=== PATIENT | male | born 1940 | race Caucasian/White ===

== ENCOUNTER 2019-02-09 08:46 | Emergency (ER) | payer MEDICARE ==
[2019-02-09 09:50] LABS: BASOPHILS % (AUTO) 1.4 % (0.0-5.0); HEMATOCRIT 40.1 % (42-54); LYMPHOCYTES % (AUTO) 12.2 % (21.0-51.0); MEAN CORPUSCULAR HEMOGLOBIN 27.7 pg (27.0-33.0); MEAN CORPUSCULAR HGB CONC 32.2 g/dL (32.0-36.0); MEAN CORPUSCULAR VOLUME 86.1 fL (79-99); MONOCYTES % (AUTO) 5.8 % (3.0-13.0); NEUTROPHILS % (AUTO) 77.6 % (40.0-77.0); PLATELET COUNT (AUTO) 333 K/uL (130-400); RED BLOOD CELL COUNT(AUTO) 4.65 MIL/uL (4.50-6.20); RED CELL DISTRIBUTION WIDTH 15.5 % (11.0-15.5); WHITE BLOOD COUNT (AUTO) 11.1 K/uL (4.8-10.8)
[2019-02-09 10:01] LABS: PARTIAL THROMBOPLASTIN TIME 27.6 SEC (26.3-35.5); PROTHROMBIN TIME 10.5 SEC (9.6-11.6)
[2019-02-09 10:04] LABS: CREATININE 0.6 mg/dL (0.5-1.5); POTASSIUM 3.5 mmol/L (3.5-5.1)
[2019-02-09 10:10] LABS: ALBUMIN 3.2 g/dL (3.5-5.0); BILIRUBIN,TOTAL 0.5 mg/dL (0.2-1.0); TOTAL PROTEIN, SERUM 8.2 g/dL (6.0-8.3)
[2019-02-09 10:36] LABS: B-TYPE NATRIURETIC PEPTIDE 22 pg/mL (0-100)
--- NOTE | 2019-02-09 11:15 | NUR ---
U/S GD LEFT THORACENTESIS PROCEDURE PERFORMED BY DR ORDONEZ. PUNCTURE SITE LEFT LATERAL RIB CAGE/BACK AND PATIENT TOLERATED PROCEDURE WELL. TOTAL REMOVED 1.5 LITERS OF MIKY CLOUDY FLUID. END OF PROCEDURE AT 1125. CATHETER REMOVED AND DRESSING APPLIED. SPECIMEN SENT TO LAB. NO BLEEDING NOTED. POST CHEST X-RAY TAKEN AND READ BY DR ORDONEZ. NO PNEUMOTHORAX SEEN. REPORT GIVEN TO ANEL PATEL IN ER. AND PATIENT TRANSPORTED TO ED VIA STRETCHER, STABLE, AAO X3 WITH NO C/O PAIN.
[2019-02-09 13:11] LABS: APPEARANCE BODY FLUID SLIGHTLY CLOUDY (CLEAR); BODY FLUID WBC 1031 /cu. mm.; COLOR,BODY FLUID AMBER (LT YELLOW); SPECIMENTYPE,BODY FLUID PLEURAL; TOTAL VOLUME,BODY FLUID 1500 mL
[2019-02-09 13:12] LABS: BODY FLUID RBC 4450 /cu. mm.
[2019-02-09 13:15] LABS: BF EOSINOPHIL 7 %; BF LYMPHOCYTE 82 %; BF MESOTHELIAL 6 %; BF MONOCYTE 3 %
[2019-02-09] MEDS ORDERED: LIDOCAINE HCL 1% 20 ML VIAL ONE (16:34)
[2019-02-12] MEDS ORDERED: FURO40TA5 PO (17:37)
[2019-02-12] MEDS ORDERED: CHOL400T33 PO (17:37)
[2019-02-12] MEDS ORDERED: LISI40TA4 PO (17:37)
[2019-02-12] MEDS ORDERED: METF-446 PO (17:37)
[2019-02-12] MEDS ORDERED: REGULAR INSULIN SQ (17:37)
[2019-02-12] MEDS ORDERED: LACT10SO9 PO (17:37)
[2019-02-12] MEDS ORDERED: DSSL PO (17:37)
[2019-02-12] MEDS ORDERED: CYAN500T46 PO (17:37)
[2019-02-12] MEDS ORDERED: GABA-531 PO (17:37)
[2019-02-12] MEDS ORDERED: METO25TA6 PO (17:37)
[2019-02-12] MEDS ORDERED: OSCD250 PO (17:37)
[2019-02-12] MEDS ORDERED: SOLI5 PO (17:37)
[2019-02-12] MEDS ORDERED: ZINC56.7 TP (17:37)
[2019-02-12] MEDS ORDERED: ASPI-555 PO (17:37)
[2019-02-12] MEDS ORDERED: LATA7.5D OU (17:37)
[2019-02-12] MEDS ORDERED: FERR-63 PO (17:37)
[2019-02-12] MEDS ORDERED: GLIP5TAB11 PO (17:37)
[2019-02-12] MEDS ORDERED: ACET325T51 PO (17:37)
== END 2019-02-09 14:53 | disposition home or self-care (01) ==
LOC: EDH 08:46
DX: J90 Pleural effusion, not elsewhere classified (principal); E78.5 Hyperlipidemia, unspecified; E11.9 Type 2 diabetes mellitus without complications; I10 Essential (primary) hypertension; Z88.8 Allergy status to other drugs, medicaments and biological substances; Z86.718 Personal history of other venous thrombosis and embolism; Z98.890 Other specified postprocedural states; Z93.3 Colostomy status
CPT/HCPCS: 32555; 36415; 71045; 71046; 80053; 82945; 83615; 83880; 83986; 84157; 85025; 85610; 85730; 87071; 87101; 87205; 87206; 89051

== ENCOUNTER 2019-02-19 18:38 | Inpatient (IN) | payer MEDICARE | END 2019-02-28 19:30 | LOC: EDH 18:38 → 3BH 02-25 12:09 → 4AH 02-20 12:47 → EDHIP 20:20 → 4AH 02-20 16:35 | DX: J90 Pleural effusion, not elsewhere classified (principal); J18.9 Pneumonia, unspecified organism; J96.01 Acute respiratory failure with hypoxia; J98.11 Atelectasis; N31.9 Neuromuscular dysfunction of bladder, unspecified; R91.1 Solitary pulmonary nodule ==

== ENCOUNTER → 2019-03-30 | Outpatient (CLI) | payer MEDICARE ==
[~2019-03-30] MED LIST: ACET325T51 PO; ASPI-555 PO; CHOL400T33 PO; CYAN500T46 PO; DSSL PO; FERR-63 PO; FURO40TA5 PO; GABA-531 PO; GLIP5TAB11 PO; LACT10SO9 PO; LATA7.5D OU; LISI40TA4 PO; METF-446 PO; METO25TA6 PO; OSCD250 PO; REGULAR INSULIN SQ; SOLI5 PO; ZINC56.7 TP
== END | disposition home or self-care (01) ==
LOC: RAH 08:51
PROVIDERS: ATTEND Urology
DX: K57.90 Diverticulosis of intestine, part unspecified, without perforation or abscess without bleeding (principal); J90 Pleural effusion, not elsewhere classified; J98.11 Atelectasis; I70.90 Unspecified atherosclerosis; K44.9 Diaphragmatic hernia without obstruction or gangrene; M47.815 Spondylosis without myelopathy or radiculopathy, thoracolumbar region
CPT/HCPCS: 74176

== ENCOUNTER 2020-05-10 19:58 | Inpatient (IN) | payer MEDICARE ==
[~2020-05-10] VITALS: Ht 175.3 cm; Wt 72.4 kg
[~2020-05-10 19:58] MED LIST changes: -ASPI-555 PO; +ASPI-556 PO
[2020-05-10 20:40] LABS: BASOPHILS % (AUTO) 1.1 % (0.0-5.0); EOSINOPHILS % (AUTO) 6.4 % (0.0-8.0); HEMATOCRIT 31.9 % (42-54); LYMPHOCYTES % (AUTO) 11.4 % (21.0-51.0); MEAN CORPUSCULAR VOLUME 87.2 fL (79-99); MONOCYTES % (AUTO) 6.8 % (3.0-13.0); NEUTROPHILS % (AUTO) 73.5 % (40.0-77.0); PLATELET COUNT (AUTO) 362 K/uL (130-400); RED BLOOD CELL COUNT(AUTO) 3.66 MIL/uL (4.50-6.20); RED CELL DISTRIBUTION WIDTH 18.2 % (11.0-15.5)
[2020-05-10 20:40] LABS: APPEARANCE,URINE Turbid (CLEAR); BILIRUBIN,URINE Negative (NEGATIVE); COLOR,URINE Yellow (YELLOW); GLUCOSE, URINE (UA) Negative (NEGATIVE); KETONES,URINE Negative (NEGATIVE); LEUKOCYTE ESTERASE ,URINE Large (NEGATIVE); NITRATE,URINE Positive (NEGATIVE); OCCULT BLOOD,URINE Moderate (NEGATIVE); PH,URINE 6.5 (5.0-8.0); PROTEIN,URINE 300 mg/dL (NEGATIVE)
[2020-05-10 20:49] LABS: CREATININE 0.5 mg/dL (0.5-1.5); POTASSIUM 4.1 mmol/L (3.5-5.1)
[2020-05-10 20:54] LABS: ALBUMIN 2.6 g/dL (3.5-5.0); BILIRUBIN,TOTAL 0.2 mg/dL (0.2-1.0); TOTAL PROTEIN, SERUM 6.8 g/dL (6.0-8.3)
[2020-05-10 20:58] LABS: BACTERIA,URINE Moderate /HPF (None Seen); RBC,URINE None Seen /HPF (0-1); SQUAMOUS EPITHELIAL CELL,UR None Seen /HPF (0-2); WBC,URINE >100 /HPF (0-1)
[2020-05-10] MEDS ORDERED: CEFTRIAXONE SODIUM 1 GM ONE (21:10)
[2020-05-10] MEDS ORDERED: SODIUM CHLORIDE 0.9% 1000ML 1,000 ML IV ONE (21:11)
[2020-05-10] MEDS ORDERED: ZOSYN 3.375GM+NS 50ML 50 ML IV ONE (22:50)
[2020-05-10 23:45] VITALS: BP 102/56
[2020-05-11] MEDS ORDERED: ACETAMINOPHEN 325 MG TAB PO PRN ×2 (01:30)
[2020-05-11] MEDS ORDERED: LACTULOSE 20 GM/30 ML UDCUP PO PRN (01:30)
[2020-05-11] MEDS ORDERED: NITROGLYCERIN 0.4 MG SL TAB SL PRN (01:30)
[2020-05-11] MEDS ORDERED: DiphenhydrAMINE HCL 50 MG/ML VIAL IVP PRN (01:30)
[2020-05-11] MEDS ORDERED: GUAIFENESIN-DM 200/20 MG 10 ML PO PRN (01:30)
[2020-05-11] MEDS ORDERED: DEXTROSE 50%-WATER 50 ML DISP.SYRIN IV PRN (01:30)
[2020-05-11] MEDS ORDERED: DIPHENHYDRAMINE HCL 25 MG CAPSULE PO PRN (01:30)
[2020-05-11] MEDS ORDERED: LIDOCAINE HCL-MPF 1% 2ML VIAL IJ PRN (01:30)
[2020-05-11] MEDS ORDERED: ONDANSETRON HCL 4 MG/2 ML VIAL IVP PRN (01:30)
[2020-05-11] MEDS ORDERED: POTASSIUM CHLORIDE 10% ELIXIR 20 MEQ/15 ML UDCUP PO PRN (01:30)
[2020-05-11] MEDS ORDERED: MAG HYDROX/AL HYDROX/SIMETH ES 30 ML SUSP UDCUP PO PRN (01:30)
[2020-05-11] MEDS ORDERED: GLUCAGON 1MG KIT 1 MG ML IM PRN (01:30)
[2020-05-11] MEDS ORDERED: GUAIFENESIN SUGAR-FREE 100 MG/5 ML UDCUP PO PRN (01:30)
[2020-05-11] MEDS ORDERED: ZOLPIDEM TARTRATE 5 MG TAB PO PRN (01:30)
[2020-05-11] MEDS ORDERED: CLONIDINE HCL 0.1 MG TABLET PO PRN (01:30)
[2020-05-11] MEDS ORDERED: ZINC50TA15 PO (01:50)
[2020-05-11] MEDS ORDERED: ASCO250T70 PO (01:50)
[2020-05-11] MEDS ORDERED: SULF1TAB42 PO (01:50)
[2020-05-11] MEDS ORDERED: NYST10PO MC (01:50)
[2020-05-11] MEDS ORDERED: INSU100I26 SQ (01:50)
[2020-05-11] MEDS ORDERED: FLUC200T8 PO (01:50)
[2020-05-11] MEDS ORDERED: COLL30OI TP (01:50)
[2020-05-11] MEDS ORDERED: MUPI22OI2 TP (01:50)
[2020-05-11] MEDS: SODIUM CHLORIDE 0.9% 1000ML 1,000 ML IV SCH ×2 (02:07→14:06)
[2020-05-11] MEDS: LEVOFLOXACIN 500 MG/D5W 100 ML 100 ML IV SCH (02:07)
[2020-05-11 03:00] VITALS: BP 99/49
[2020-05-11] MEDS: INSULIN R PO SS1 SQ SCH ×4 (05:32→21:00)
[2020-05-11] MEDS: ZOSYN 3.375GM+NS 50ML 50 ML IV SCH ×3 (05:55→21:14)
[2020-05-11 08:10] VITALS: BP 99/50
[2020-05-11] MEDS: NYSTATIN 15 GM POWDER TP SCH ×3 (10:14→21:13)
[2020-05-11 12:00] VITALS: BP 111/56
--- NOTE | 2020-05-11 12:01 | NUR ---
RD NOTIFICATION Pt with UTI, Delayed wound healing. Heart healthy, Puree, 75gm CC, HTL diet order in place. Pt with L-Buttock, Coccyx decubitus ulcers, per EMR. RD attempt at phone interview, No answer. Recommend Lee w/Pudding BID Recommend 500mg Vit C (BID), 220mg ZnSO4 (QD) for wound healing support Recommend continue diet order as medically feasible. RD to follow up. Please notify as additional nutrition concerns arise. Thank you. Addendum: 05/11/20 at [address] RD Amended: Links added.
--- NOTE | 2020-05-11 15:45 | NUR ---
MET W/ PATIENT DAUGHTER HEATHER AT NURSES STATION FOR INITIAL ASSESSMENT P RESIDENT OF NANETTE VALERIO TO RETURN- CARE DEPENDENT, NEEDS LOTS OF WOUND CARE, SUPPORT, NOW W LEAKING SUPRAPUBIC CATHETER PLAN WILL BE BACK TO [place]. EXPECT EMS TRANSPORT. PENDING CULTURES Addendum: 05/11/20 at 1552 by TRA ELLIOTT RN CM Amended: Links added.
[2020-05-11 16:00] VITALS: BP 124/70
--- NOTE | 2020-05-11 17:01 | NUR ---
[facility] consult Patient assessed as ordered. [facility] recommendations submitted per protocol. Report given to patient's nurse. Erum millan in use. Addendum: 05/11/20 at 1703 by CHRIS JANE RN/ Amended: Links added.
[2020-05-11 21:22] VITALS: BP 122/62
[2020-05-12 00:05] VITALS: BP 135/66
[2020-05-12] MEDS: LEVOFLOXACIN 500 MG/D5W 100 ML 100 ML IV SCH (01:19)
[2020-05-12 03:39] LABS: HEMATOCRIT 30.8 % (42-54); MEAN CORPUSCULAR HEMOGLOBIN 27.4 pg (27.0-33.0); MEAN CORPUSCULAR HGB CONC 31.2 g/dL (32.0-36.0); RED BLOOD CELL COUNT(AUTO) 3.5 MIL/uL (4.50-6.20); RED CELL DISTRIBUTION WIDTH 17.6 % (11.0-15.5); WHITE BLOOD COUNT (AUTO) 6.8 K/uL (4.8-10.8)
[2020-05-12 03:49] LABS: CREATININE 0.5 mg/dL (0.5-1.5); POTASSIUM 3.8 mmol/L (3.5-5.1)
[2020-05-12] MEDS: ZOSYN 3.375GM+NS 50ML 50 ML IV SCH ×3 (05:37→21:32)
[2020-05-12] MEDS: SODIUM CHLORIDE 0.9% 1000ML 1,000 ML IV SCH ×2 (05:37→17:25)
[2020-05-12] MEDS: INSULIN R PO SS1 SQ SCH ×4 (05:42→21:33)
[2020-05-12 05:50] VITALS: BP 135/69
[2020-05-12 08:00] VITALS: BP 118/64
[2020-05-12] MEDS ORDERED: LACTULOSE 20 GM/30 ML UDCUP PO PRN (08:00)
[2020-05-12] MEDS: HONEY 1 APPL/ML TUBE TP SCH (10:03)
[2020-05-12] MEDS: NYSTATIN 15 GM POWDER TP SCH ×3 (10:04→21:32)
[2020-05-12 11:19] VITALS: BP 112/61
[2020-05-12 16:00] VITALS: BP 129/73
[2020-05-12 21:34] VITALS: BP 145/62
[2020-05-13] VITALS (7 sets, daily range): BP systolic 112–138; BP diastolic 53–80
[2020-05-13] MEDS: ZOSYN 3.375GM+NS 50ML 50 ML IV SCH ×3 (06:03→22:01)
[2020-05-13] MEDS: INSULIN R PO SS1 SQ SCH ×4 (06:03→21:00)
[2020-05-13] MEDS: NYSTATIN 15 GM POWDER TP SCH ×4 (09:00→22:01)
[2020-05-13] MEDS: HONEY 1 APPL/ML TUBE TP SCH (09:15)
--- NOTE | 2020-05-13 11:01 | NUR ---
RD FOLLOW UP Pt is tolerating Heart healthy, Puree, 75gm CC, HTL diet order with no complaint of GI distress. Fair PO intake at 75%. Lee for wound healing in place. Recommend continue current diet order. RD to continue to monitor. Addendum: 05/13/20 at [address] RD Amended: Links added.
--- NOTE | 2020-05-13 18:14 | NUR ---
RANDI PER DR. BRYAN TO REMOVE 5CC FROM BALLOON.
[2020-05-14 03:47] VITALS: BP 118/49
[2020-05-14] MEDS: ZOSYN 3.375GM+NS 50ML 50 ML IV SCH ×3 (05:25→22:25)
[2020-05-14] MEDS: INSULIN R PO SS1 SQ SCH ×4 (05:25→21:13)
[2020-05-14 08:01] VITALS: BP 121/68
[2020-05-14] MEDS: HONEY 1 APPL/ML TUBE TP SCH (09:57)
[2020-05-14 11:59] VITALS: BP 124/69
[2020-05-14] MEDS: NYSTATIN 15 GM POWDER TP SCH ×2 (14:54→21:13)
[2020-05-14 15:46] VITALS: BP 108/87
[2020-05-14 19:55] VITALS: BP 112/57
[2020-05-14 23:22] VITALS: BP 116/60
[2020-05-15 03:06] VITALS: BP 105/54
--- NOTE | 2020-05-15 04:30 | NUR ---
DRESSINGS TO RIGHT AND LEFT BUTTOCKS CHANGED PER WOUND CARE ORDERS. PT TOLERATED WELL. WILL CONT TO MONITOR.
[2020-05-15] MEDS: INSULIN R PO SS1 SQ SCH ×4 (05:39→20:40)
[2020-05-15] MEDS: ZOSYN 3.375GM+NS 50ML 50 ML IV SCH ×3 (05:53→20:26)
[2020-05-15 08:37] VITALS: BP 124/65
[2020-05-15] MEDS: NYSTATIN 15 GM POWDER TP SCH ×3 (09:02→20:25)
[2020-05-15] MEDS: HONEY 1 APPL/ML TUBE TP SCH (09:02)
[2020-05-15 12:33] VITALS: BP 119/66
[2020-05-15 15:55] VITALS: BP 100/50
--- NOTE | 2020-05-15 16:28 | NUR ---
Notifed Dr. Temple of positive result for Covid-19 testing. Will prepare patient for transfer to Covid unit. Called patient's daughter, Shanta Cox and notified of positive test result. Instructed family member on proper precautions of safe distancing, self quarantine and to notify primary care physician if symptoms arise as well as [place] if [place] felt she needed to be tested. Daughter verbalized understanding. Stated that I was going to call spouse of patient, and daughter stated that her mother had dementia and that the emergency contact should be daughter.
--- NOTE | 2020-05-15 16:53 | NUR ---
CM NOTE CM spoke to [facility] with [facility]. Notified of positive COVID result. States pt is still accepted and can transfer back to facility. Notified pt is asymptomatic. CM attempted to obtain signature for form from Dr. Temple. Asked CM to obtain signature once Tim returns to [facility] tomorrow. CM notified charge nurse of above. Per [facility], patient with previous testing on 03/09/20 and 04/29/20. [facility] results were both negative. CM to f/u.
[2020-05-15 19:55] VITALS: BP_SYST 117; BP_SYST 155; BP_DIAS 63; BP_DIAS 68
[2020-05-16] VITALS: BP 120/60
[2020-05-16 04:00] VITALS: BP 131/70
[2020-05-16] MEDS: ZOSYN 3.375GM+NS 50ML 50 ML IV SCH ×3 (04:08→21:11)
[2020-05-16 04:24] LABS: HEMATOCRIT 29.4 % (42-54); MEAN CORPUSCULAR HEMOGLOBIN 26.9 pg (27.0-33.0); MEAN CORPUSCULAR HGB CONC 30.6 g/dL (32.0-36.0); MEAN CORPUSCULAR VOLUME 87.8 fL (79-99); RED BLOOD CELL COUNT(AUTO) 3.35 MIL/uL (4.50-6.20); RED CELL DISTRIBUTION WIDTH 17.5 % (11.0-15.5); WHITE BLOOD COUNT (AUTO) 6.1 K/uL (4.8-10.8)
[2020-05-16 04:36] LABS: CREATININE 0.4 mg/dL (0.5-1.5); MAGNESIUM 1.9 mg/dL (1.80-2.40)
[2020-05-16] MEDS: INSULIN R PO SS1 SQ SCH ×4 (05:06→20:50)
[2020-05-16] MEDS: POTASSIUM CHLORIDE 20MEQ/100ML 100 ML IV PRN ×2 (05:15→17:51)
--- NOTE | 2020-05-16 07:35 | NUR ---
DR.MARIN VAZQUEZ ROUNDING AND ASKING FOR PATIENT ON 3RD FLOOR, INFORMED OF POSITIVE RESULTS, STATES CAN CHANGE PROVIDER STATUS TO . ALSO CALLED TO INFORMED HIM OF PATIENT AND AGREE.
[2020-05-16] MEDS: HONEY 1 APPL/ML TUBE TP SCH (09:00)
[2020-05-16] MEDS: NYSTATIN 15 GM POWDER TP SCH ×3 (09:00→21:52)
[2020-05-16 11:46] VITALS: BP 125/69
[2020-05-16 16:00] VITALS: BP 134/65
[2020-05-16 19:59] VITALS: BP 138/65
[2020-05-17 00:30] VITALS: BP 136/76
[2020-05-17 04:37] VITALS: BP 126/47
[2020-05-17] MEDS: ZOSYN 3.375GM+NS 50ML 50 ML IV SCH ×2 (05:11→14:06)
[2020-05-17] MEDS: INSULIN R PO SS1 SQ SCH ×3 (06:40→16:09)
[2020-05-17 08:17] VITALS: BP 130/67
[2020-05-17] MEDS: POTASSIUM CHLORIDE 20 MEQ ERTAB PO PRN ×5 (09:50→14:07)
[2020-05-17] MEDS: HONEY 1 APPL/ML TUBE TP SCH (09:50)
[2020-05-17] MEDS: NYSTATIN 15 GM POWDER TP SCH ×2 (09:51→14:06)
[2020-05-17 11:44] VITALS: BP 118/71
--- NOTE | 2020-05-17 15:55 | NUR ---
ATTEMPTED TO CALL REPORT, NINO W/ DELIA SAID NURSE WOULD CALL BACK DUE TO BUSY. PROVIDED WITH CALL BACK NUMBER, DELIA VERBALIZED UNDERSTANDING.
--- NOTE | 2020-05-17 16:34 | NUR ---
CALLED [facility] TO GIVE REPORT REPORT GIVEN TO AMANDA BOBO LVN, VERBALIZED UNDERSTANDING. EMS CALLED; SPOKE WITH SYEDA. PT DISCHARGED. NOTIFIED DAUGHTER AND PATIENT. VERBALIZED UNDERSTANDING.
--- NOTE | 2020-05-17 18:27 | NUR ---
DC PLAN SPOKE TO DR. SANDOVAL SAID THAT PATIENT READY FOR DISCHARGE. CHECKED CHART THERE WAS A SCRIPT FROM DR. JEFF AND THERE WERE WOUND CARE RECOMMENDATIONS. PACKET SENT TO [facility] TO RETURN SKILLED FOR AT LEAST 7 DAYS. SPOKE TO PRABHA SAID OKAY FOR PATIENT TO RETURN SKILLED. COVID FORM SIGNED IN CHART. EMS SET UP PATIENT IS COVID POSITIVE AND BEDBOUND. PASRR DONE AND SENT. Addendum: 05/17/20 at 1833 by LETICIA DUCKWORTH RN CM Amended: Links added.
[2020-05-18] MEDS ORDERED: HONEY 1 APPL/ML TUBE TP SCH (09:00)
== END 2020-05-17 18:15 | DRG 699 ==
LOC: EDH 19:58 → EDHIP 22:10 → 3BH 22:40 → 2DH 05-15 20:08
PROVIDERS: ADMIT Internal Medicine; ATTEND Internal Medicine
DX: T83.030A Leakage of cystostomy catheter, initial encounter (principal); N39.0 Urinary tract infection, site not specified; Z16.12 Extended spectrum beta lactamase (ESBL) resistance; Z16.24 Resistance to multiple antibiotics; J98.11 Atelectasis; E44.1 Mild protein-calorie malnutrition; Z93.3 Colostomy status; I11.0 Hypertensive heart disease with heart failure; N31.9 Neuromuscular dysfunction of bladder, unspecified; B37.9 Candidiasis, unspecified; E11.9 Type 2 diabetes mellitus without complications; E66.9 Obesity, unspecified; E78.5 Hyperlipidemia, unspecified; E87.6 Hypokalemia; I50.9 Heart failure, unspecified; K59.00 Constipation, unspecified; R53.81 Other malaise; B96.1 Klebsiella pneumoniae [K. pneumoniae] as the cause of diseases classified elsewhere; Y73.8 Miscellaneous gastroenterology and urology devices associated with adverse incidents, not elsewhere classified; Z96.0 Presence of urogenital implants; L89.152 Pressure ulcer of sacral region, stage 2; Z68.23 Body mass index [BMI] 23.0-23.9, adult; Z74.01 Bed confinement status; Y92.89 Other specified places as the place of occurrence of the external cause; Z88.8 Allergy status to other drugs, medicaments and biological substances
CPT/HCPCS: 36415; 74176; 80048; 80053; 81001; 82948; 83605; 83735; 85025; 85027; 87040; 87077; 87088; 87186; 87635; G0378; J0696; J1815; J1956; J2543; J3480; J3490; J7030; Q0163